=== PATIENT | male | born 1965 | race Hispanic/Latino ===

== ENCOUNTER 2018-01-09 12:39 | Emergency (ER) | payer MEDICARE ==
[2018-01-09 12:40] VITALS: BMI 25.8
--- NOTE | 2018-01-09 14:23 | ED PDOC ---
HPI: Psych/Substance Abuse Time Seen by Provider: 01/09/18 13:21 Chief Complaint (Nursing): Psychiatric Evaluation Chief Complaint (Provider): Psychiatric Evaluation History Per: Patient History/Exam Limitations: no limitations Onset/Duration Of Symptoms: Days Current Symptoms Are (Timing): Still Present Additional Complaint(s): Patient is a 52 y/o male with a past medical history of anxiety and hypertension , who presents to the ED requesting food, long-term, and med refills. States he takes Lisinopril (5 mg daily) for his blood pressure, and Klonopin (0.5 mg TID) for his anxiety. Patient is currently homeless. Reports he feels slightly anxious but does not want to speak to a counselor. Otherwise: (-) hallucinations, (-) suicidal ideation, (-) homicidal ideation, (-) chest pain, ( -) back pain (-) abdominal pain (-) headache (-) palpitations (-) dizziness (-) syncope (-) dyspnea, (-) vomiting, (-) substance abuse, (-) patient intent of initiating a suicide attempt, (-) plan. PMD: Dr. Moffett Past Medical History Reviewed: Historical Data, Nursing Documentation, Vital Signs Vital Signs: Last Vital Signs Temp 98.7 F 01/09/18 13:13 Pulse 87 01/09/18 13:13 Resp 16 01/09/18 13:13 BP 187/101 H 01/09/18 13:13 Pulse Ox 100 01/09/18 13:13 - Medical History PMH: Anxiety, Depression, HTN Denies: Diabetes, Hepatitis, HIV, Chronic Kidney Disease, Seizures, Sexually Transmitted Disease - Surgical History Surgical History: No Surg Hx Denies: Pacemaker - Family History Family History: States: Unknown Family Hx - Social History Current smoker - smoking cessation education provided: Yes (1 pack/day) Alcohol: None Drugs: Denies - Home Medications Home Medications: Ambulatory Orders Medication Instructions Recorded ARIPiprazole [Abilify] 10 mg PO DAILY #14 tab 08/07/17 DULoxetine [Cymbalta] 40 mg PO DAILY #30 ecc 08/07/17 Lisinopril [Zestril] 5 mg PO DAILY #7 tab 08/07/17 Pantoprazole [Protonix EC Tab] 40 mg PO 0630 #7 ect 08/07/17 Zolpidem [Ambien] 5 mg PO HS #14 tab 08/07/17 clonazePAM [Klonopin] 1 mg PO BID #30 tab 08/07/17 hydroCHLOROthiazide [Hydrodiuril] 25 mg PO DAILY #7 tab 08/07/17 Lisinopril [Prinivil] 5 mg PO DAILY #14 tablet 01/09/18 - Allergies Allergies/Adverse Reactions: Allergies Allergy/AdvReac Type Severity Reaction Status Date / Time No Known Allergies Allergy Verified 01/09/18 13:13 Review of Systems ROS Statement: Except As Marked, All Systems Reviewed And Found Negative Constitutional: Negative for: Fever Cardiovascular: Negative for: Chest Pain Respiratory: Negative for: Shortness of Breath Gastrointestinal: Negative for: Nausea, Vomiting Psych: Positive for: Anxiety. Negative for: Suicidal ideation (or homicidal) Physical Exam - Reviewed Nursing Documentation Reviewed: Yes Vital Signs Reviewed: Yes - Physical Exam Comments: GENERAL APPEARANCE: Patient is awake, alert, oriented x 3, in no acute distress. Ambulatory in ED with a steady gait. SKIN: Warm, dry; (-) cyanosis HEAD: (-) scalp swelling, (-) scalp tenderness. EYES: (-) conjunctival pallor, (-) scleral icterus, (-) nystagmus. ENMT: Mucous membranes moist. Airway patent: (-) stridor. NECK: Supple, FROM (-) tenderness, (-) stiffness, (-) lymphadenopathy. CHEST AND RESPIRATORY: (-) rales, (-) rhonchi, (-) wheezes; breath sounds equal. ABDOMEN: Soft, (-) distention, (-) tenderness, (-) guarding. NEURO AND PSYCH: Mental status as above. Affect: Calm and cooperative. packing line operator: Intact. Pupils equal and reactive; EOMI. - ECG O2 Sat by Pulse Oximetry: 100 (RA) Pulse Ox Interpretation: Normal Medical Decision Making Medical Decision Making: Time: 14:07 Initial Plan: * Accucheck * Lisinopril 5 mg PO Discussed with ED attending Dr. Anthony, we will refill patients prescription for Lisinopril. Advised that patient will need to see his primary doctor or psychiatrist for Klonopin refill. Resources provided to patient regarding nearby shelters and affordable housing. Finger stick is 90. Patient given meal tray as requested. 16:32 On reevaluation, patient is medically stable, AAOx3. On examination, lungs are clear, no focal deficits. Ambulating in the ED with steady gait. Repeat blood pressure: 151/91 17:18 Patient discharged home with prescription for Lisinopril. Counseled regarding the need for follow up with PMD in 1-2 days. There is agreement to discharge plan. Return if symptoms persist or worsen. Patient states he fully agrees with and understands discharge instructions. Verbalized and repeated discharge instructions and plan. I have given the patient opportunity to ask any additional questions. Scribe Attestation: Documented by Miguelina Owens, acting as a scribe for Pita Orozco PA-C Provider Scribe Attestation: All medical record entries made by the Scribe were at my direction and personally dictated by me. I have reviewed the chart and agree that the record accurately reflects my personal performance of the history, physical exam, medical decision making, and the department course for this patient. I have also personally directed, reviewed, and agree with the discharge instructions and disposition. Disposition - Clinical Impression Clinical Impression: Medication refill, Elevated blood pressure reading - Patient ED Disposition Is Patient to be Admitted: No Counseled Patient/Family Regarding: Diagnosis, Need For Followup, Rx Given, Smoking Cessation - Disposition Referrals: [facility] [Provider Group] Disposition: Routine/Home Disposition Time: 17:18 Condition: STABLE Prescriptions: Lisinopril [Prinivil] 5 mg PO DAILY #14 tablet Instructions: High Blood Pressure in Adults, Where to Get Help Paying for Your Prescriptions, Hypertension (ED) Forms: [employer] (Estonian) Print Language: WOLOF - POA Present On Arrival: None
[2018-01-09 15:10] VITALS: RESP 20
[2018-01-09 16:31] VITALS: BP 151/91; PULSE 82; TEMP 98.8
[2018-01-09 16:34] VITALS: O2SAT 100
== END 2018-01-09 18:00 | disposition home or self-care (01) ==
LOC: H.ER 12:39
DX: Z76.0 Encounter for issue of repeat prescription (principal); I10 Essential (primary) hypertension; F32.9 Major depressive disorder, single episode, unspecified; F41.9 Anxiety disorder, unspecified

== ENCOUNTER 2018-01-10 16:59 | Emergency (ER) | payer MEDICARE ==
[2018-01-10 16:59] VITALS: BMI 25.8
[2018-01-10 17:29] VITALS: TEMP 98.1
--- NOTE | 2018-01-10 17:52 | ED PDOC ---
HPI: Psych/Substance Abuse Time Seen by Provider: 01/10/18 17:35 Chief Complaint (Nursing): Dizziness/Lightheaded Chief Complaint (Provider): "I need something to eat and a place to sleep" History Per: Patient History/Exam Limitations: no limitations Onset/Duration Of Symptoms: Days Additional Complaint(s): Pt was seen in ER yesterday and given lisinopril rx but did not fill it. Pt asks for something to eat and a placed to sleep since he is homeless. Past Medical History Reviewed: Historical Data, Nursing Documentation, Vital Signs Vital Signs: Last Vital Signs Temp 98.1 F 01/10/18 17:27 Pulse 93 H 01/10/18 17:27 Resp 16 01/10/18 17:27 BP 168/109 H 01/10/18 17:27 Pulse Ox 100 01/10/18 17:27 - Medical History PMH: Anxiety, Depression, HTN Denies: Diabetes, Hepatitis, HIV, Chronic Kidney Disease, Seizures, Sexually Transmitted Disease - Surgical History Surgical History: Denies: Pacemaker - Family History Family History: States: Unknown Family Hx - Living Arrangements Living Arrangements: With Family - Social History Current smoker - smoking cessation education provided: No - Home Medications Home Medications: Ambulatory Orders Medication Instructions Recorded ARIPiprazole [Abilify] 10 mg PO DAILY #14 tab 08/07/17 DULoxetine [Cymbalta] 40 mg PO DAILY #30 ecc 08/07/17 Lisinopril [Zestril] 5 mg PO DAILY #7 tab 08/07/17 Pantoprazole [Protonix EC Tab] 40 mg PO 0630 #7 ect 08/07/17 Zolpidem [Ambien] 5 mg PO HS #14 tab 08/07/17 clonazePAM [Klonopin] 1 mg PO BID #30 tab 08/07/17 hydroCHLOROthiazide [Hydrodiuril] 25 mg PO DAILY #7 tab 08/07/17 Lisinopril [Prinivil] 5 mg PO DAILY #14 tablet 01/09/18 - Allergies Allergies/Adverse Reactions: Allergies Allergy/AdvReac Type Severity Reaction Status Date / Time No Known Allergies Allergy Verified 01/09/18 13:13 Review of Systems ROS Statement: Except As Marked, All Systems Reviewed And Found Negative Constitutional: Negative for: Fever, Chills Physical Exam - Reviewed Nursing Documentation Reviewed: Yes Vital Signs Reviewed: Yes - Physical Exam Appears: Positive for: Well, Non-toxic, No Acute Distress Head Exam: Positive for: ATRAUMATIC, NORMAL INSPECTION, NORMOCEPHALIC Skin: Positive for: Normal Color, Warm, DRY Eye Exam: Positive for: Normal appearance ENT: Positive for: Normal ENT Inspection Neck: Positive for: Normal, Painless ROM Cardiovascular/Chest: Positive for: Regular Rate, Rhythm Respiratory: Positive for: CNT, Normal Breath Sounds Gastrointestinal/Abdominal: Positive for: Normal Exam, Bowel Sounds, Soft Back: Positive for: Normal Inspection Extremity: Positive for: Normal ROM Neurologic/Psych: Positive for: Alert, Oriented - ECG O2 Sat by Pulse Oximetry: 100 Medical Decision Making Medical Decision Making: Lisinopril given for HTN in ER. Repeat BP - 157/85 Disposition - Clinical Impression Clinical Impression: Elevated blood pressure reading, Homeless - Patient ED Disposition Is Patient to be Admitted: No Counseled Patient/Family Regarding: Diagnosis, Need For Followup - Disposition Referrals: [facility] [Outside] Disposition: Routine/Home Disposition Time: 18:50 Condition: STABLE Instructions: Hypotension (ED), Hypertension (ED) Forms: [employer] (Indonesian)
[2018-01-10 19:05] VITALS: BP 139/65; PULSE 68; RESP 15; O2SAT 98
== END 2018-01-10 19:34 | disposition home or self-care (01) ==
LOC: H.ER 16:59
DX: I10 Essential (primary) hypertension (principal); Z59.0 Homelessness; Z86.59 Personal history of other mental and behavioral disorders

== ENCOUNTER 2018-01-11 15:24 | Emergency (ER) | payer MEDICARE ==
[2018-01-11 15:25] VITALS: BMI 25.8
[2018-01-11 15:52] VITALS: TEMP 97.8; O2SAT 99
[2018-01-11 16:27] VITALS: RESP 20
--- NOTE | 2018-01-11 16:36 | ED PDOC ---
HPI: General Adult Time Seen by Provider: 01/11/18 15:51 Chief Complaint (Nursing): Dizziness/Lightheaded Chief Complaint (Provider): Requesting BP medication Additional Complaint(s): 52 yo homeless male with history of anxiety and HTN presents to ER for the 3rd time in 3 days. Pt requesting food, BP medication and to sleep. No fever/ chills. Denies chest pain . Past Medical History Reviewed: Historical Data, Nursing Documentation, Vital Signs Vital Signs: Last Vital Signs Temp 97.8 F 01/11/18 15:50 Pulse 94 H 01/11/18 16:26 Resp 20 01/11/18 16:26 BP 159/96 H 01/11/18 16:26 Pulse Ox 99 01/11/18 16:26 - Medical History PMH: Anxiety, Depression, HTN Denies: Diabetes, Hepatitis, HIV, Chronic Kidney Disease, Seizures, Sexually Transmitted Disease - Surgical History Surgical History: No Surg Hx Denies: Pacemaker - Family History Family History: States: Unknown Family Hx - Living Arrangements Living Arrangements: With Family - Social History Current smoker - smoking cessation education provided: No - Home Medications Home Medications: Ambulatory Orders Medication Instructions Recorded ARIPiprazole [Abilify] 10 mg PO DAILY #14 tab 08/07/17 DULoxetine [Cymbalta] 40 mg PO DAILY #30 ecc 08/07/17 Lisinopril [Zestril] 5 mg PO DAILY #7 tab 08/07/17 Pantoprazole [Protonix EC Tab] 40 mg PO 0630 #7 ect 08/07/17 Zolpidem [Ambien] 5 mg PO HS #14 tab 08/07/17 clonazePAM [Klonopin] 1 mg PO BID #30 tab 08/07/17 hydroCHLOROthiazide [Hydrodiuril] 25 mg PO DAILY #7 tab 08/07/17 Lisinopril [Prinivil] 5 mg PO DAILY #14 tablet 01/09/18 - Allergies Allergies/Adverse Reactions: Allergies Allergy/AdvReac Type Severity Reaction Status Date / Time No Known Allergies Allergy Verified 01/11/18 15:50 Review of Systems ROS Statement: Except As Marked, All Systems Reviewed And Found Negative Constitutional: Negative for: Fever, Chills Gastrointestinal: Negative for: Nausea, Vomiting Neurological: Negative for: Confusion, Seizures, Dizziness Physical Exam - Reviewed Nursing Documentation Reviewed: Yes Vital Signs Reviewed: Yes - Physical Exam Appears: Positive for: Well, Non-toxic, No Acute Distress Head Exam: Positive for: ATRAUMATIC, NORMAL INSPECTION, NORMOCEPHALIC Skin: Positive for: Normal Color, Warm, DRY Eye Exam: Positive for: Normal appearance ENT: Positive for: Normal ENT Inspection Neck: Positive for: Normal, Painless ROM Cardiovascular/Chest: Positive for: Regular Rate, Rhythm Respiratory: Positive for: CNT, Normal Breath Sounds Gastrointestinal/Abdominal: Positive for: Normal Exam, Bowel Sounds, Soft Back: Positive for: Normal Inspection Extremity: Positive for: Normal ROM Neurologic/Psych: Positive for: Alert, Oriented - ECG O2 Sat by Pulse Oximetry: 99 Medical Decision Making Medical Decision Making: EKG in ER Disposition - Clinical Impression Clinical Impression: Homeless, HTN (hypertension) - Patient ED Disposition Is Patient to be Admitted: No Counseled Patient/Family Regarding: Diagnosis, Need For Followup - Disposition Disposition: Routine/Home Disposition Time: 16:36 Condition: STABLE Instructions: High Blood Pressure in Adults
[2018-01-11 17:21] VITALS: BP 134/92; PULSE 115
[2018-01-11 18:08] LABS: HEMOGLOBIN 15.8 g/dL (12.0-18.0); MEAN CELL VOLUME 88.9 fl (80.0-94.0); MEAN CORPUSCULAR HEMOGLOBIN 30.1 pg (27.0-31.0); MEAN CORPUSCULAR HGB CONC 33.8 g/dL (33.0-37.0); RBC 5.27 Mil/uL (4.40-5.90); RED CELL DISTRIBUTION WIDTH 14.1 % (11.5-14.5); WHITE BLOOD COUNT 11.9 K/uL (4.8-10.8)
[2018-01-11 18:20] LABS: ALB/GLOB RATIO 1.5 (1.0-2.1); ALBUMIN 4.3 g/dL (3.5-5.0); ALT/SGPT 34 U/L (21-72); AST/SGOT 22 U/L (17-59); BLOOD UREA NITROGEN 18 mg/dl (9-20); CALCIUM 9.4 mg/dL (8.4-10.2); GFR AFRICAN-AMERICAN > 60; GFR NON-AFRICAN AMERICAN > 60
--- NOTE | 2018-01-12 14:58 | CARD ---
APPROVED REPORT EKG Measurement Heart [id number] <Conclusion> Normal sinus rhythm with sinus arrhythmia Normal ECG
== END 2018-01-11 19:20 | disposition home or self-care (01) ==
LOC: H.ER 15:24
DX: I10 Essential (primary) hypertension (principal); Z59.0 Homelessness; F41.9 Anxiety disorder, unspecified; F32.9 Major depressive disorder, single episode, unspecified